=== PATIENT | female | born 1970 | race Caucasian/White ===

== ENCOUNTER 2018-09-05 10:15 | Emergency (ER) | payer BC, OTHER ==
[2018-09-05] MEDS ORDERED: MOTRIN 600 MG PO ONE (10:43)
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
[2018-09-05] MEDS ORDERED: MOTRIN 600 MG ONE (11:05)
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
[2018-09-05 11:23] VITALS: BP 126/83
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
[2018-09-05 11:55] VITALS: O2SAT 99
[2018-09-05 12:05] VITALS: PULSE 88
== END 2018-09-05 12:10 | disposition home or self-care (01) ==
LOC: ED 10:15
DX: S16.1XXA Strain of muscle, fascia and tendon at neck level, initial encounter (principal); S39.012A Strain of muscle, fascia and tendon of lower back, initial encounter; V43.52XA Car driver injured in collision with other type car in traffic accident, initial encounter
CPT/HCPCS: 72110; 72125; 99284; A9270-GY

== ENCOUNTER 2019-07-19 16:29 | Emergency (ER) | payer BC, OTHER ==
[2019-07-19 17:02] VITALS: O2SAT 99
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
[2019-07-19] MEDS ORDERED: Hydromorphone 1 mg/ml Ampule IM ONE (18:10)
[2019-07-19] MEDS ORDERED: Phenergan 25 MG INJ IM ONE (18:10)
[2019-07-19] MEDS ORDERED: Phenergan 25 MG INJ ONE (18:14)
[2019-07-19] MEDS ORDERED: Hydromorphone 1 mg/ml Ampule ONE (18:14)
[2019-07-19 18:30] VITALS: BP 138/73; PULSE 80
== END 2019-07-19 18:54 | disposition home or self-care (01) ==
LOC: ED 16:29
DX: G43.909 Migraine, unspecified, not intractable, without status migrainosus (principal); J32.9 Chronic sinusitis, unspecified
CPT/HCPCS: 96372; 99284; J1170; J2550